=== PATIENT | female | born 1995 | race Caucasian/White ===

== ENCOUNTER 2017-04-23 07:32 | Emergency (ER) | payer SELFPAY ==
[~2017-04-23] VITALS: Ht 154.9 cm; Wt 57.4 kg
[2017-04-23 07:36] VITALS: BP 119/82
--- NOTE | 2017-04-23 07:50 | NUR ---
22/F PRESENT TO ER C/O ABDOMINAL SANCHEZ x 3 DAYS. PT STATES PAIN 9/10 FROM LOWER ABD RADIATING TO EPIGASTRIC AREA. PT STATES SHE WEAS TAKING MOTRIN 80OMG LAST NIGHT AT 1940 AND DID NOT HELP THE PAIN. PT STATES SHE HAS HX OF CONSTIPATION. VSS. PT STATUS REPORTED TO [facility].
[2017-04-23] MEDS ORDERED: DICYCLOMINE 20 MG/2 ML VIAL IM ONE (08:00)
--- NOTE | 2017-04-23 08:05 | NUR ---
Patient being evaluated by physician at bedside.
[2017-04-23] MEDS ORDERED: MAGNESIUM CITRATE 300 ML BTL PO ONE (08:30)
[2017-04-23 08:59] VITALS: BP 120/82
--- NOTE | 2017-04-23 09:00 | NUR ---
Patient discharged with v/s stable. Written and verbal after care instructions given and explained. Patient alert, oriented and verbalized understanding of instructions. Ambulatory with steady gait. All questions addressed prior to discharge. ID band removed. Patient advised to follow up with PMD. Rx of BENTYL 2OMG TABLET AND COLACE 100MG CAPSULE given. Patient educated on indication of medication including possible reaction and side effects. Opportunity to ask questions provided and answered.
== END 2017-04-23 09:00 | disposition home or self-care (01) ==
LOC: MED 07:32
DX: R10.84 Generalized abdominal pain (principal)
CPT/HCPCS: 74018; 81002; 81025; 96372; 99283; J0500

== ENCOUNTER 2017-04-26 22:10 | Emergency (ER) | payer SELFPAY ==
[~2017-04-26] VITALS: Ht 154.9 cm; Wt 57.4 kg
[2017-04-26 22:15] VITALS: BP 119/78
--- NOTE | 2017-04-26 22:25 | NUR ---
PATIENT AMBULATED TO BED 11
--- NOTE | 2017-04-26 22:28 | NUR ---
PATIENT PRESENTS TO ED WITH EPIGASTRIC PAIN X6 HOURS . PT DENIES N/V/D; SKIN IS PINK/WARM/DRY; AAOX4 WITH EVEN AND STEADY GAIT; LUNGS CLEAR BL; HR EVEN AND REGULAR; PT DENIES ANY FEVER, CP, SOB, OR COUGH AT THIS TIME; PATIENT STATES PAIN OF 9/10 AT THIS TIME; VSS; PATIENT POSITIONED FOR COMFORT; HOB ELEVATED; BEDRAILS UP X1; BED DOWN. ER MD MADE AWARE OF PT STATUS.
[2017-04-26] MEDS ORDERED: DICYCLOMINE HCL LIQUID 10 MG/5 ML UDC PO ONE (22:55)
[2017-04-26] MEDS ORDERED: ALUMINUM HYD/MAG/SIMETHICONE 30 ML UDC PO ONE (22:55)
[2017-04-26] MEDS ORDERED: LIDOCAINE VISCOUS 2% 20 ML UDC PO ONE (22:55)
[2017-04-26] MEDS ORDERED: PANTOPRAZOLE 40 MG TABEC PO ONE (22:55)
--- NOTE | 2017-04-26 22:55 | NUR ---
RADIOLOGY IN TO SEE PATIENT
[2017-04-27 01:03] VITALS: BP 119/78
--- NOTE | 2017-04-27 01:04 | NUR ---
Patient discharged with v/s stable. Written and verbal after care instructions given and explained. Patient alert, oriented and verbalized understanding of instructions. Ambulatory with steady gait. All questions addressed prior to discharge. ID band removed. Patient advised to follow up with PMD. Rx of PROTONIX, MAGNESIUM CITRATE given. Patient educated on indication of medication including possible reaction and side effects. Opportunity to ask questions provided and answered.
== END 2017-04-27 01:04 | disposition home or self-care (01) ==
LOC: MED 22:10
DX: K29.70 Gastritis, unspecified, without bleeding (principal)
CPT/HCPCS: 74018; 81002; 81025; 99283; Q0092

== ENCOUNTER 2019-02-10 00:27 | Emergency (ER) | payer MEDICAID, OTHER ==
[~2019-02-10] VITALS: Ht 154.9 cm; Wt 72.6 kg
[2019-02-10 00:30] VITALS: BP 118/71
--- NOTE | 2019-02-10 00:33 | NUR ---
TO LOBBY A/W BED AMBULATORY
--- NOTE | 2019-02-10 01:11 | NUR ---
PT TAKEN TO BED 1
--- NOTE | 2019-02-10 01:18 | NUR ---
ASSESSMENT COMPLETED AT THIS TIME FOR DIARRHEA AND ABD PAIN. LAYING DOWN IN BED, SIDE RAIL UP, BED LOW AND LOCKED. FAMILY AT BEDSIDE.
--- NOTE | 2019-02-10 01:21 | NUR ---
DR TOMLINSON AT BEDSIDE.
[2019-02-10] MEDS ORDERED: DICYCLOMINE 20 MG/2 ML VIAL IM ONE (01:30)
[2019-02-10 02:24] VITALS: BP 118/71
--- NOTE | 2019-02-10 02:25 | NUR ---
Patient discharged with v/s stable. Written and verbal after care instructions given and explained. Patient alert, oriented and verbalized understanding of instructions. Ambulatory with steady gait. All questions addressed prior to discharge. ID band removed. Patient advised to follow up with PMD. Rx of bentyl given. Patient educated on indication of medication including possible reaction and side effects. Opportunity to ask questions provided and answered.
== END 2019-02-10 02:25 | disposition home or self-care (01) ==
LOC: MED 00:27
DX: K58.0 Irritable bowel syndrome with diarrhea (principal); R25.2 Cramp and spasm
CPT/HCPCS: 96372; 99283; J0500

== ENCOUNTER 2021-01-16 16:58 | Emergency (ER) | payer OTHER ==
[~2021-01-16] VITALS: Ht 154.9 cm; Wt 78.9 kg
[2021-01-16 17:15] VITALS: BP 118/43
[2021-01-16] MEDS ORDERED: FLUC150T PO (17:43)
[2021-01-16] MEDS ORDERED: LOTC TP (17:43)
[2021-01-16 17:58] VITALS: BP 118/43
--- NOTE | 2021-01-16 17:59 | NUR ---
Patient discharged with v/s stable. Written and verbal after care instructions given and explained. Patient alert, oriented and verbalized understanding of instructions. Ambulatory with steady gait. All questions addressed prior to discharge. ID band removed. Patient advised to follow up with PMD. Rx of CLOTRIMAZOLE, FLUCONAZOLE given. Patient educated on indication of medication including possible reaction and side effects. Opportunity to ask questions provided and answered.
== END 2021-01-16 17:59 | disposition home or self-care (01) ==
LOC: MED 16:58
DX: B35.4 Tinea corporis (principal); Z79.899 Other long term (current) drug therapy
CPT/HCPCS: 99283

== ENCOUNTER 2021-03-14 14:48 | Emergency (ER) | payer OTHER ==
[~2021-03-14] VITALS: Ht 154.9 cm; Wt 80.5 kg
[~2021-03-14 14:48] MED LIST: FLUC150T PO; LOTC TP
[2021-03-14 14:53] VITALS: BP 118/72
--- NOTE | 2021-03-14 15:02 | NUR ---
Ambulated to bed 11
--- NOTE | 2021-03-14 15:05 | NUR ---
RAFA Henson is evaluating pt at bedside
--- NOTE | 2021-03-14 15:05 | NUR ---
26 y/o F BIB self from home c/o vaginal bleeding, nausea, and breast tenderness. Pt A&Ox4, GCS 15, reports light pink-brown bleeding that increased today. Pt also reports nausea, breast tenderness, and RLQ 10/10, crmaping/intermittent, radiating to R leg that has since self-resolved. Pt reports seen at urgent care for dysuria and advised no UTI, however, + . Pt reports 2 weeks , LMP 02/22/21; states first . 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 Abd soft/round/non-tender. Bed locked in lowest position, side rails x 1. PMH/Sx/Meds: prenatals NKDA
--- NOTE | 2021-03-14 15:35 | NUR ---
Lab at bedside
[2021-03-14 15:58] LABS: BASOPHILS % (AUTO) 0.2 % (0.0-2.0); EOSINOPHILS # (AUTO) 0.2 K/uL (0-0.4); HEMATOCRIT 38.7 % (36-48); HEMOGLOBIN 13.2 g/dL (12.0-16.0); LYMPHOCYTES # (AUTO) 1.8 K/uL (2.5-16.5); LYMPHOCYTES % (AUTO) 11.4 % (20.5-51.1); MEAN CORPUSCULAR HEMOGLOBIN 30 pg (27-31); MEAN CORPUSCULAR HGB CONC 34 g/dL (33-37); MEAN CORPUSCULAR VOLUME 87.4 fL (80-94); MONOCYTES # (AUTO) 0.8 K/uL (0.8-1.0); MONOCYTES % (AUTO) 4.8 % (1.7-9.3); NEUTROPHILS % (AUTO) 82.6 % (42.2-75.2); PLATELET COUNT (AUTO) 423 K/uL (140-450); RED BLOOD CELL COUNT(AUTO) 4.43 MIL/uL (4.20-5.40); WHITE BLOOD COUNT (AUTO) 15.8 K/uL (4.8-10.8)
--- NOTE | 2021-03-14 16:25 | NUR ---
US tech at bedside
[2021-03-14 16:46] LABS: APPEARANCE,URINE CLEAR (CLEAR); BILIRUBIN,URINE 1+ (NEGATIVE); BLOOD, URINE 3+ (NEGATIVE); COLOR,URINE YELLOW (YELLOW); LEUKOCYTE ESTERASE ,URINE NEGATIVE (NEGATIVE); NITRITE, URINE NEGATIVE (NEGATIVE); UGLUCOSE NEGATIVE (NEGATIVE)
[2021-03-14] MEDS ORDERED: ACET-10509 PO (18:44)
[2021-03-14 18:52] VITALS: BP 129/71
--- NOTE | 2021-03-14 18:52 | NUR ---
Patient discharged with v/s stable. Written and verbal after care instructions given FOR THREATENED MISCARRIAGE and explained. Patient alert, oriented and verbalized understanding of instructions. Ambulatory with steady gait. All questions addressed prior to discharge. ID band removed. Patient advised to follow up with PMD. Rx of TYNENOL given. Patient educated on indication of medication including possible reaction and side effects. Opportunity to ask questions provided and answered.
[2021-03-14 19:27] LABS: RBC,URINE 80-100 /HPF (0-5); WBC,URINE 0-5 /HPF (0-5)
[2021-03-14 19:28] LABS: CALCIUM OXALATE CRYSTALS,UR None Seen /HPF (None Seen); COARSE GRANULAR CASTS,URINE None Seen /LPF (None Seen); FINE GRANULAR CASTS,URINE None Seen /LPF (None Seen); HYALINE CASTS, URINE None Seen /LPF (None Seen); OTHER CASTS, URINE None Seen /LPF (None Seen); OTHER CRYSTALS,URINE None Seen /HPF (None Seen); RED BLOOD CELL CASTS,URINE None Seen /LPF (None Seen); TRICHOMONAS,URINE None Seen /HPF (None Seen); TRIPLE PHOSPHATE CRYSTAL,UR None Seen /HPF (None Seen); URIC ACID CRYSTALS,URINE None Seen /HPF (None Seen); URINE AMORPHOUS URATE None Seen /HPF (None Seen); WAXY CASTS,URINE None Seen /LPF (None Seen); YEAST,URINE None Seen /HPF (None Seen)
== END 2021-03-14 18:52 | disposition home or self-care (01) ==
LOC: MED 14:48
DX: O20.0 Threatened abortion (principal); Z79.899 Other long term (current) drug therapy; Z3A.01 Less than 8 weeks gestation of pregnancy
CPT/HCPCS: 36415; 76817; 81001; 81025; 84702; 85025; 86900; 86901; 99284; Q0092

== ENCOUNTER 2021-06-18 15:39 | Emergency (ER) | payer OTHER ==
[~2021-06-18] VITALS: Ht 175.3 cm; Wt 80.7 kg
[~2021-06-18 15:39] MED LIST changes: +ACET-10509 PO
[2021-06-18 15:57] VITALS: BP 128/84
--- NOTE | 2021-06-18 16:00 | NUR ---
PT AMBULATE TO ER BED 9 WITH A STEADY GAIT.
--- NOTE | 2021-06-18 16:07 | NUR ---
26 Y/O FEMALE C/O CHEST PAIN 08/18 , COUGH, SORETHROAT, FEVER AT HOME 101F X4DAYS. PT STATES SHE LOST VOICE, DENIES N/V. PT STATES SHE TOOK TYNENOL AND PRESCRIBED PROMETHAZINE WITH SOME RELIEF. DENIES PMH NKA
--- NOTE | 2021-06-18 16:30 | NUR ---
CANNON PINION ADJUSTER AT PT BEDSIDE.
[2021-06-18] MEDS ORDERED: PRED20TA5 PO ×2 (17:04→17:20)
[2021-06-18 17:11] VITALS: BP 128/84
--- NOTE | 2021-06-18 17:11 | NUR ---
Patient discharged with v/s stable. Written and verbal after care instructions given FOR UPPER RESPIRATORY INFECTION AND ACUTE BRIONCHITIS and explained. Patient verbalized understanding. Ambulatory with steady gait. All questions addressed prior to discharge. Advised to follow up with PMD.
== END 2021-06-18 17:11 | disposition home or self-care (01) ==
LOC: MED 15:39
DX: J20.9 Acute bronchitis, unspecified (principal); Z79.899 Other long term (current) drug therapy
CPT/HCPCS: 71045; 99283; Q0092

== ENCOUNTER 2021-07-29 11:45 | Emergency (ER) | payer OTHER ==
[~2021-07-29] VITALS: Ht 154.9 cm; Wt 80.3 kg
[~2021-07-29 11:45] MED LIST changes: +PRED20TA5 PO
[2021-07-29 12:08] VITALS: BP 126/90
[2021-07-29] MEDS ORDERED: CEPH-588 PO (13:59)
[2021-07-29] MEDS ORDERED: IBUP-2213 PO (13:59)
--- NOTE | 2021-07-29 14:42 | NUR ---
NO NURSING MEASURES DONE. Patient discharged with v/s stable. Written and verbal after care instructions given and explained. Patient alert, oriented and verbalized understanding of instructions. Ambulatory with steady gait. All questions addressed prior to discharge. ID band removed. Patient advised to follow up with PMD. Rx KELFEX AND MOTRIN given. Patient educated on indication of medication including possible reaction and side effects. Opportunity to ask questions provided and answered.
[2021-07-29 14:43] VITALS: BP 120/74
== END 2021-07-29 14:25 | disposition home or self-care (01) ==
LOC: MED 11:45
DX: S09.90XA Unspecified injury of head, initial encounter (principal); R21 Rash and other nonspecific skin eruption; W01.0XXA Fall on same level from slipping, tripping and stumbling without subsequent striking against object, initial encounter; Y93.89 Activity, other specified; Y92.89 Other specified places as the place of occurrence of the external cause; Y99.8 Other external cause status
CPT/HCPCS: 99283

== ENCOUNTER 2022-05-07 12:16 | Emergency (ER) | payer MEDICAID, OTHER ==
[~2022-05-07] VITALS: Ht 154.9 cm; Wt 80.7 kg
[~2022-05-07 12:16] MED LIST changes: +CEPH-588 PO; +IBUP-2213 PO
[2022-05-07 12:26] VITALS: BP 124/78
--- NOTE | 2022-05-07 12:55 | NUR ---
27/F PRESENTS TO ED WITH C/O PRODUCTIVE COUGH X2 DAYS AND ONE EPISODE OF FEVER LAST NIGHT WHICH RESOLVED S/P TAKING TYLENOL. PATIENT REPORTS BROTHER AT HOME RECENTLY SICK WITH SIMILAR S/S. PATIENT DENIES CP, SOB, N/V/D.
[2022-05-07] MEDS ORDERED: ACETAMINOPHEN EXTRA STRENGTH 500 MG TAB PO ONE (13:15)
[2022-05-07] MEDS ORDERED: IBUP-2218 PO (13:27)
[2022-05-07] MEDS ORDERED: PROM118S5 PO (13:27)
--- NOTE | 2022-05-07 14:16 | NUR ---
Patient discharged with v/s stable. Written and verbal after care instructions given and explained. Patient alert, oriented and verbalized understanding of instructions. Ambulatory with steady gait. All questions addressed prior to discharge. ID band removed. Patient advised to follow up with PMD. Rx of PROMETHAZINE AND IBUPROFEN given. Patient educated on indication of medication including possible reaction and side effects. Opportunity to ask questions provided and answered.
== END 2022-05-07 14:16 | disposition home or self-care (01) ==
LOC: MED 12:16
DX: J06.9 Acute upper respiratory infection, unspecified (principal); R03.0 Elevated blood-pressure reading, without diagnosis of hypertension; Z79.899 Other long term (current) drug therapy; Z79.2 Long term (current) use of antibiotics; Z79.1 Long term (current) use of non-steroidal anti-inflammatories (NSAID)
CPT/HCPCS: 99283

== ENCOUNTER 2022-10-21 15:28 | Emergency (ER) | payer MEDICAID ==
[~2022-10-21] VITALS: Ht 154.9 cm; Wt 80.5 kg
[~2022-10-21 15:28] MED LIST changes: +IBUP-2218 PO; +PROM118S5 PO
[2022-10-21 15:43] VITALS: BP 135/73; PULSE 106; RESP 20; TEMP 98.6; O2SAT 96
[2022-10-21] MEDS ORDERED: SIME80TA41 PO (19:46)
[2022-10-21] MEDS ORDERED: DOCU-299 PO (19:46)
[2022-10-21 20:30] VITALS: BP 122/90; PULSE 106; RESP 16; O2SAT 98
== END 2022-10-21 20:30 | disposition home or self-care (01) ==
LOC: MED 15:28
DX: R14.0 Abdominal distension (gaseous) (principal); R94.31 Abnormal electrocardiogram [ECG] [EKG]
CPT/HCPCS: 74018; 81025; 93005; 99283

== ENCOUNTER 2022-10-26 09:52 | Emergency (ER) | payer MEDICAID ==
[~2022-10-26] VITALS: Ht 154.9 cm; Wt 80.3 kg
[~2022-10-26 09:52] MED LIST changes: +DOCU-299 PO; +SIME80TA41 PO
[2022-10-26 10:14] VITALS: BP 118/77; PULSE 99; RESP 16; TEMP 97.8; O2SAT 100
[2022-10-26] MEDS ORDERED: IBUP-2213 PO (11:43)
[2022-10-26 11:54] VITALS: BP 129/77; PULSE 95; RESP 18; TEMP 97.2; O2SAT 97
== END 2022-10-26 11:54 | disposition home or self-care (01) ==
LOC: MED 09:52
DX: S63.611A Unspecified sprain of left index finger, initial encounter (principal); Z79.899 Other long term (current) drug therapy; X58.XXXA Exposure to other specified factors, initial encounter; Y93.39 Activity, other involving climbing, rappelling and jumping off; Y92.89 Other specified places as the place of occurrence of the external cause; Y99.8 Other external cause status
CPT/HCPCS: 73140; 81025; 99283; Q0092